=== PATIENT | male | born 1960 | race Caucasian/White ===

== ENCOUNTER 2020-05-02 03:28 | Emergency (ER) | payer OTHER ==
[~2020-05-02 03:28] MED LIST: Sodium Chloride 0.9% 10 ML Syringe FLUSH PRN
[2020-05-02] MEDS ORDERED: LORazepam 0.5 MG Tab PO ONE (03:29)
--- NOTE | 2020-05-02 03:36 | EDM.PDOC ---
ED HPI GENERAL MEDICAL PROBLEM - General Chief Complaint: Respiratory Problem Stated Complaint: SOB Time Seen by Provider: 05/02/20 03:28 Source of Information: Reports: Patient, RN, RN Notes Reviewed - History of Present Illness INITIAL COMMENTS - FREE TEXT/NARRATIVE: Patient presents to ER per POV with complaint of sudden onset shortness of breath and fatigue. Patient and his are camping nearby, here for a family reunion from [place]. Patient states his phone rang in the middle of the night he answered it, no one was there. Hung up and stated he felt very short of breath. States over the past few weeks he has had some short cramp-like feelings in the left arm. Tonight denies any chest pains or arm pain, jaw or neck pain. Patient denies any recent illness, fever chills, nausea/vomit ing/diarrhea. Patient states he has had coworkers that have been positive for COVID, but he has not been exposed to them as they work in a different building. Patient denies being tested for COVID. Patient denies any past medical history except hypothyroidism, takes Synthroid on a daily basis. Patient states he is not a regular drinker, but had a few alcoholic beverages this evening. Patient denies having any pain recently and his lower legs. Patient denies any past medical history of heart or lung problems. States family history of cardiac problems, brother currently hospitalized after 5 vessel bypass. Onset: Today, Sudden Duration: Heavy Severity: Moderate Associated Symptoms: Reports: Shortness of Breath, Weakness. Denies: Chest Pain, Cough, cough w sputum, Fever/Chills, Headaches, Loss of Appetite, Nausea/Vomiting - Related Data Allergies Allergy/AdvReac Type Severity Reaction Status Date / Time Penicillins Allergy Swelling Verified 05/02/20 03:46 Home Meds: Home Meds Levothyroxine 125 mcg PO ACBREAKFAST 05/02/20 [History] ED ROS GENERAL - Review of Systems Review Of Systems: Comprehensive ROS is negative, except as noted in HPI. ED EXAM, GENERAL - Physical Exam Exam: See Below Exam Limited By: No Limitations General Appearance: Alert, WD/WN, Mild Distress Eye Exam: Bilateral Eye: EOMI, Normal Inspection Ears: Normal External Exam, Hearing Grossly Normal Nose: Normal Inspection Throat/Mouth: Normal Inspection, Normal Voice, No Airway Compromise Head: Atraumatic, Normocephalic Neck: Normal Inspection, Supple, Non-Tender, Full Range of Motion Respiratory/Chest: No Respiratory Distress, Lungs Clear, Normal Breath Sounds, No Accessory Muscle Use, Chest Non-Tender, Decreased Breath Sounds Cardiovascular: Normal Peripheral Pulses, Regular Rate, Rhythm, No Edema, No Gallop, No JVD, No Murmur, No Rub Peripheral Pulses: 2+: Radial (L), Radial (R) GI/Abdominal: Normal Bowel Sounds, Soft, Non-Tender (Male) Exam: Deferred Rectal (Males) Exam: Deferred Back Exam: Normal Inspection, Full Range of Motion Extremities: Normal Inspection, Normal Range of Motion, Non-Tender, Normal Capillary Refill, No Pedal Edema Neurological: Alert, Oriented, CN II-XII Intact, Normal Cognition, Normal Gait, Normal Reflexes, No Motor/Sensory Deficits Psychiatric: Normal Affect, Normal Mood Skin Exam: Warm, Dry, Intact, Normal Color, No Rash Lymphatic: No Adenopathy Course - Vital Signs Last Recorded V/S: Last Vital Signs Temp 96.7 F L 05/02/20 03:30 Pulse 63 05/02/20 03:30 Resp 21 H 05/02/20 03:30 BP 128/75 05/02/20 03:30 Pulse Ox 100 05/02/20 03:30 - Orders/Labs/Meds Orders: Active Orders 24 hr Category Date Time Status EKG Documentation Completion [RC] STAT Care 05/02/20 03:27 Active Peripheral IV Care [RC] . DIRECTED Care 05/02/20 03:27 Active Sodium Chloride 0.9% [Saline Flush] Med 05/02/20 03:27 Active 10 ml FLUSH ASDIRECTED PRN Peripheral IV Insertion Adult [OM.PC] Stat Oth 05/02/20 03:27 Ordered Medication Orders Sodium Chloride (Saline Flush) 10 ml FLUSH ASDIRECTED PRN PRN Reason: Keep Vein Open Last Admin: 05/02/20 03:43 Dose: 10 ml Documented by: KUSUM Labs: Laboratory Tests 05/02/20 05/02/20 05/02/20 Range/Units 03:37 03:37 03:37 WBC 7.3 (5.0-10.0) 10^3/uL RBC 5.18 (4.6-6.2) 10^6/uL Hgb 15.9 (14.0-18.0) g/dL Hct 45.1 (40.0-54.0) % MCV 87.1 (80-100) fL MCH 30.7 (27.0-34.0) pg MCHC 35.3 H (33.0-35.0) g/dL Plt Count 160 (150-450) 10^3/uL Neut % (Auto) 48.5 (42.2-75.2) % Lymph % (Auto) 38.0 (20.5-50.1) % [place] % (Auto) 11.2 H (2-8) % Eos % (Auto) 1.8 (1.0-3.0) % Baso % (Auto) 0.5 (0.0-1.0) % D-Dimer, Quantitative < 100 (0-400) ng/mL Sodium 137 (136-145) mmol/L Potassium 3.6 (3.5-5.1) mmol/L Chloride 102 (98-107) mmol/L Carbon Dioxide 21 (21-32) mmol/L Anion Gap 17.6 H (7-13) mEq/L BUN 18 (7-18) mg/dL Creatinine 1.33 H (0.70-1.30) mg/dL Est Cr Clr Drug Dosing 72.36 mL/min Estimated GFR (MDRD) 55 BUN/Creatinine Ratio 13.5 (No establ ref range) Glucose 123 H (74-99) mg/dL Calcium 8.8 (8.5-10.1) mg/dL Total Bilirubin 0.5 (0.2-1.0) mg/dL AST 22 (15-37) U/L ALT 46 (16-63) U/L Alkaline Phosphatase 82 (46-116) U/L Troponin I < 0.017 (0.000-0.056) ng/mL B-Natriuretic Peptide 34 (0-100) pg/ml Total Protein 7.8 (6.4-8.2) g/dL Albumin 4.2 (3.4-5.0) g/dL Globulin 3.6 Albumin/Globulin Ratio 1.2 Urine Color (YELLOW) Urine Appearance (CLEAR) Urine pH (5.0-9.0) Ur Specific [place] (1.005-1.030) Urine Protein (NEGATIVE) Urine Glucose (UA) (NEGATIVE) Urine Ketones (NEGATIVE) Urine Occult Blood (NEGATIVE) Urine Nitrite (NEGATIVE) Urine Bilirubin (NEGATIVE) Urine Urobilinogen (0.2-1.0) mg/dL Ur Leukocyte Esterase (NEGATIVE) 05/02/20 Range/Units 03:40 WBC (5.0-10.0) 10^3/uL RBC (4.6-6.2) 10^6/uL Hgb (14.0-18.0) g/dL Hct (40.0-54.0) % MCV (80-100) fL MCH (27.0-34.0) pg MCHC (33.0-35.0) g/dL Plt Count (150-450) 10^3/uL Neut % (Auto) (42.2-75.2) % Lymph % (Auto) (20.5-50.1) % [place] % (Auto) (2-8) % Eos % (Auto) (1.0-3.0) % Baso % (Auto) (0.0-1.0) % D-Dimer, Quantitative (0-400) ng/mL Sodium (136-145) mmol/L Potassium (3.5-5.1) mmol/L Chloride (98-107) mmol/L Carbon Dioxide (21-32) mmol/L Anion Gap (7-13) mEq/L BUN (7-18) mg/dL Creatinine (0.70-1.30) mg/dL Est Cr Clr Drug Dosing mL/min Estimated GFR (MDRD) BUN/Creatinine Ratio (No establ ref range) Glucose (74-99) mg/dL Calcium (8.5-10.1) mg/dL Total Bilirubin (0.2-1.0) mg/dL AST (15-37) U/L ALT (16-63) U/L Alkaline Phosphatase (46-116) U/L Troponin I (0.000-0.056) ng/mL B-Natriuretic Peptide (0-100) pg/ml Total Protein (6.4-8.2) g/dL Albumin (3.4-5.0) g/dL Globulin Albumin/Globulin Ratio Urine Color Yellow (YELLOW) Urine Appearance Clear (CLEAR) Urine pH 5.0 (5.0-9.0) Ur Specific [place] 1.010 (1.005-1.030) Urine Protein Negative (NEGATIVE) Urine Glucose (UA) Negative (NEGATIVE) Urine Ketones Negative (NEGATIVE) Urine Occult Blood Negative (NEGATIVE) Urine Nitrite Negative (NEGATIVE) Urine Bilirubin Negative (NEGATIVE) Urine Urobilinogen 0.2 (0.2-1.0) mg/dL Ur Leukocyte Esterase Negative (NEGATIVE) Meds: Medications Generic Name Dose Route Start Last Admin Trade Name Freq PRN Reason Stop Dose Admin Sodium Chloride 10 ml 05/02/20 03:27 05/02/20 03:43 Saline Flush FLUSH 10 ml ASDIRECTED PRN Administration Keep Vein Open Discontinued Medications Generic Name Dose Route Start Last Admin Trade Name Freq PRN Reason Stop Dose Admin Aspirin 324 mg 05/02/20 03:44 05/02/20 03:47 Aspirin PO 05/02/20 03:45 324 mg ONETIME ONE Administration Lorazepam 0.5 mg 05/02/20 04:16 05/02/20 04:22 Ativan IVPUSH 05/02/20 04:17 0.5 mg ONETIME ONE Administration - Radiology Interpretation Free Text/Narrative:: Chest xray: PROCEDURE INFORMATION: Exam: XR Chest, 1 View Exam date and time: 05/02/2020 3:52 AM Age: 60 years old Clinical indication: Other: Chest pain TECHNIQUE: Imaging protocol: XR of the chest Views: 1 view. COMPARISON: No relevant prior studies available. FINDINGS: Lungs: Unremarkable. No consolidation. Pleural space: Unremarkable. No pleural effusion. No pneumothorax. Heart/Mediastinum: Unremarkable. No cardiomegaly. Bones/joints: Unremarkable. IMPRESSION: No acute findings. Thank you for allowing us to participate in the care of your patient. Dictated and Authenticated by: Aubrey Paul MD 05/02/2020 4:28 AM Central Time ([place] & [place]) See rad report - Re-Assessments/Exams Free Text/Narrative Re-Assessment/Exam: 05/02/20 04:23 EKG sent to Cardiology in [place]. Dr. Sommer looked at EKG and does not feel this is ST elevation in V2 and V3, and states it looks fine. 05/02/20 04:30 Luciano Gerardo called back, Dr. Sommer requested another EKG. This will be done and faxed to [facility]. 05/02/20 04:40 [employer] called back, Dr. Sommer is happy with the second EKG and still feels it looks fine. Departure - Departure Time of Disposition: 05:04 Disposition: Home, Self-Care 01 Condition: Good Clinical Impression: Anxiety - Discharge Information *PRESCRIPTION DRUG MONITORING PROGRAM REVIEWED*: No *COPY OF PRESCRIPTION DRUG MONITORING REPORT IN PATIENT AMANDO: No Instructions: Shortness of Breath, Adult, [id number], Living With Anxiety Forms: ED Department Discharge Additional Instructions: Rest Return to the ER with any worsening of symptoms Follow-up with your primary care provider when you get home Sepsis Event Note (ED) - Focused Exam Vital Signs: Vital Signs Temp Pulse Resp BP Pulse Ox 05/02/20 03:30 96.7 F L 63 21 H 128/75 100 - My Orders Last 24 Hours: My Active Orders 05/02/20 03:27 EKG Documentation Completion [RC] STAT Peripheral IV Care [RC] . DIRECTED Sodium Chloride 0.9% [Saline Flush] 10 ml FLUSH ASDIRECTED PRN Peripheral IV Insertion Adult [OM.PC] Stat - Assessment/Plan Last 24 Hours: My Active Orders 05/02/20 03:27 EKG Documentation Completion [RC] STAT Peripheral IV Care [RC] . DIRECTED Sodium Chloride 0.9% [Saline Flush] 10 ml FLUSH ASDIRECTED PRN Peripheral IV Insertion Adult [OM.PC] Stat
[2020-05-02] MEDS ORDERED: Aspirin 81 MG Tab.Chew PO ONE (03:44)
[2020-05-02 04:04] LABS: ANION GAP 17.6 mEq/L (7-13); CHLORIDE,CL 102 mmol/L (98-107); SODIUM,NA 137 mmol/L (136-145)
[2020-05-02] MEDS ORDERED: LORazepam 2 MG/ML SDV IVPUSH ONE (04:16)
--- NOTE | 2020-05-02 04:28 | CR ---
PROCEDURE INFORMATION: Exam: XR Chest, 1 View Exam date and time: 05/02/2020 3:52 AM Age: 60 years old Clinical indication: Other: Chest pain TECHNIQUE: Imaging protocol: XR of the chest Views: 1 view. COMPARISON: No relevant prior studies available. FINDINGS: Lungs: Unremarkable. No consolidation. Pleural space: Unremarkable. No pleural effusion. No pneumothorax. Heart/Mediastinum: Unremarkable. No cardiomegaly. Bones/joints: Unremarkable. IMPRESSION: No acute findings.
[2020-05-02] MEDS ORDERED: LORazepam 0.5 MG Tab ONE (05:17)
== END 2020-05-02 05:18 | disposition home or self-care (01) ==
LOC: DL.ED 03:28
DX: F41.9 Anxiety disorder, unspecified (principal); Z88.0 Allergy status to penicillin; Z79.899 Other long term (current) drug therapy
CPT/HCPCS: 36415; 71045; 80053; 81003; 83880; 84484; 85025; 85379; 93005; 96374; 99285; A9270; J2060; 99283